=== PATIENT | female | born 1995 | race African-American/Black ===

== ENCOUNTER 2016-12-09 20:19 | Emergency (ER) | payer SELFPAY ==
[2016-12-09] MEDS ORDERED: Ketorolac Tromethamine 30 MG/ML VIAL ONE (20:55)
[2016-12-09] MEDS ORDERED: Dexamethasone 4 mg/ml Vial ONE (20:56)
[2016-12-09 20:57] LABS: #Basophils 0.1 thou/uL (0.0-0.2); #Eosinphils 0.1 thou/uL (0.0-0.7); #Lymphocytes 1.8 thou/uL (1.20-3.40); #Monocytes 1.3 thou/uL (0.11-0.59); %Basophils 0.8 % (0.0-1.0); %Eosinophils 0.3 % (0.0-10.0); %Lymphocytes 10.3 % (21.0-51.0); %Monocytes 7.5 % (0.0-10.0); Hemoglobin 12.7 g/dL (12.0-16.0); Mean Corpuscular HGB CONC 33.2 g/dL (32.0-36.0); Mean Corpuscular Hemoglobin 30.1 pg (27.0-31.0); Mean Corpuscular Volume 90.5 fl (81.0-99.0); Mean Platelet Volume 7.9 fL (7.4-10.4); Platelet Count 292 thou/uL (130-400); Red Blood Cell (RBC) Count 4.22 mill/uL (4.20-5.40); White Blood Cell (WBC) Count 17.3 thou/uL (4.8-10.8)
[2016-12-09] MEDS ORDERED: Bicillin CR 1.2 MILL UNITS/2 ML SYRINGE ONE (21:04)
[2016-12-09 21:06] LABS: ALT (SGPT) 22 U/L (8-55); AST (SGOT) 16 U/L (5-34); Albumin 4.3 g/dL (3.5-5.0); Alkaline Phosphatase 66 U/L (40-150); Anion Gap 14 mmol/L (10-20); BUN (Urea Nitrogen) 7 mg/dL (7.0-18.7); Bilirubin, Total 0.5 mg/dL (0.2-1.2); Calc. Creatinine Clearance 0 mL/min (70-130); Calcium 9.3 mg/dL (7.8-10.44); Carbon Dioxide 25 mmol/L (22-29); Chloride 103 mmol/L (98-107); Estimated GFR-MDRD Greater than 90; Globulin 3.5 g/dL (2.4-3.5); Glucose 84 mg/dL (70-105); Potassium 3.7 mmol/L (3.5-5.1); Protein, Total 7.8 g/dL (6.0-8.3); Sodium 138 mmol/L (136-145)
== END 2016-12-09 22:39 | disposition home or self-care (01) ==
LOC: BURERS 20:19
DX: J02.0 Streptococcal pharyngitis (principal)
CPT/HCPCS: 80053; 85025; 96361; 96372; 96374; J0558; J1100; J1885

== ENCOUNTER 2019-06-22 13:33 | Emergency (ER) | payer OTHER ==
[2019-06-22] MEDS ORDERED: hydrOXYzine 25 MG TAB ONE (14:04)
[2019-06-22] MEDS ORDERED: predniSONE 20 MG TAB ONE (14:04)
[2019-06-22] MEDS ORDERED: Famotidine 20 MG TAB ONE (14:05)
== END 2019-06-22 14:20 | disposition home or self-care (01) ==
LOC: BURERS 13:33
DX: R20.2 Paresthesia of skin (principal); T36.0X5A Adverse effect of penicillins, initial encounter; F41.9 Anxiety disorder, unspecified; F32.9 Major depressive disorder, single episode, unspecified; F17.210 Nicotine dependence, cigarettes, uncomplicated
CPT/HCPCS: 99283; J7512

== ENCOUNTER 2019-08-09 20:51 | Emergency (ER) | payer OTHER ==
[2019-08-09] MEDS ORDERED: Morphine 4 MG/ML VIAL ONE (21:16)
[2019-08-09 21:31] LABS: #Basophils 0.1 thou/uL (0.0-0.2); #Eosinphils 0.3 thou/uL (0.0-0.7); #Lymphocytes 2.8 thou/uL (1.20-3.40); #Monocytes 1.1 thou/uL (0.11-0.59); #Neutrophils 6.5 thou/uL (1.40-6.50); %Basophils 0.6 % (0.0-1.0); %Eosinophils 2.9 % (0.0-10.0); %Lymphocytes 25.8 % (21.0-51.0); %Monocytes 10.2 % (0.0-10.0); %Neutrophils 60.6 % (42.0-75.0); Mean Corpuscular HGB CONC 32.7 g/dL (32.0-36.0); Mean Corpuscular Volume 91.9 fL (78.0-98.0); Mean Platelet Volume 6.7 fL (7.4-10.4); Platelet Count 300 thou/uL (130-400); RBC Distribution Width 11.9 % (11.5-14.5); Red Blood Cell (RBC) Count 3.33 mill/uL (4.20-5.40); White Blood Cell (WBC) Count 10.7 thou/uL (4.8-10.8)
[2019-08-09 21:48] LABS: ALT (SGPT) 14 U/L (8-55); AST (SGOT) 11 U/L (5-34); Albumin 3.8 g/dL (3.5-5.0); Alkaline Phosphatase 41 U/L (40-110); Anion Gap 14 mmol/L (10-20); BUN (Urea Nitrogen) 7 mg/dL (7.0-18.7); Bilirubin, Total Less than 0.2 mg/dL (0.2-1.2); Calc. Creatinine Clearance 0 mL/min (70-130); Calcium 9.2 mg/dL (7.8-10.44); Carbon Dioxide 23 mmol/L (22-29); Chloride 103 mmol/L (98-107); Estimated GFR-MDRD Greater than 90; Globulin 3.1 g/dL (2.4-3.5); Glucose 99 mg/dL (70-105); Lipase 42 U/L (8-78); Potassium 3.5 mmol/L (3.5-5.1); Protein, Total 6.9 g/dL (6.0-8.3); Sodium 136 mmol/L (136-145)
== END 2019-08-09 22:20 | disposition short-term general hospital (02) ==
LOC: BURERS 20:51
DX: O26.891 Other specified pregnancy related conditions, first trimester (principal); R10.30 Lower abdominal pain, unspecified; R10.814 Left lower quadrant abdominal tenderness; R10.813 Right lower quadrant abdominal tenderness; O99.341 Other mental disorders complicating pregnancy, first trimester; F41.9 Anxiety disorder, unspecified; F32.9 Major depressive disorder, single episode, unspecified; O99.331 Smoking (tobacco) complicating pregnancy, first trimester; F17.210 Nicotine dependence, cigarettes, uncomplicated; Z3A.09 9 weeks gestation of pregnancy
CPT/HCPCS: 80053; 83690; 84702; 85025; 96374; J2270

== ENCOUNTER 2019-12-23 04:29 | Emergency (ER) | payer OTHER ==
[2019-12-23 04:58] LABS: Bilirubin Negative (Negative); Blood, Urine Trace (Negative); Clarity Turbid (Clear); Glucose, Urine (Dipstick) Negative (Negative); Leukocyte Small (Negative); Nitrite Negative (Negative); Protein, Urine (Dipstick) Negative (Neg-Trace); Urobilinogen 0.2 mg/dL (Less than 2)
[2019-12-23 04:59] LABS: Bacteria/HPF 1+ HPF (None Seen); RBC/HPF 0-3 HPF (0-3); Squamous Epithelial 0-3 HPF (0-3)
[2019-12-23] MEDS ORDERED: Cephalexin 250 MG CAP ONE (05:06)
== END 2019-12-23 05:15 | disposition home or self-care (01) ==
LOC: BURERS 04:29
DX: O23.43 Unspecified infection of urinary tract in pregnancy, third trimester (principal); O99.343 Other mental disorders complicating pregnancy, third trimester; F41.9 Anxiety disorder, unspecified; F32.9 Major depressive disorder, single episode, unspecified
CPT/HCPCS: 81003; 81015; 87086; 99283

== ENCOUNTER 2020-06-19 21:25 | Emergency (ER) | payer OTHER ==
[~2020-06-19 21:25] MED LIST: Iopamidol 370 76% 100 ML VIAL ONE
[2020-06-19] MEDS ORDERED: Ketorolac Tromethamine 30 MG/ML VIAL ONE (22:00)
[2020-06-19 22:28] LABS: BHCG - Serum Negative (NEGATIVE); Pregs Control Background? CLEAR/WHITE (CLR/WHITE); Pregs Control Bar Appear? YES (CONTROL BAR)
[2020-06-19 22:32] LABS: Hemoglobin 11.3 g/dL (12.0-16.0); Red Blood Cell (RBC) Count 3.96 mill/uL (4.20-5.40); White Blood Cell (WBC) Count 8.2 thou/uL (4.8-10.8)
[2020-06-19 22:33] LABS: #Eosinphils 0.3 thou/uL (0.0-0.7); #Lymphocytes 2.4 thou/uL (1.20-3.40); #Monocytes 0.7 thou/uL (0.11-0.59); #Neutrophils 4.7 thou/uL (1.40-6.50); %Basophils 0.5 % (0.0-1.0); %Eosinophils 3.4 % (0.0-10.0); %Lymphocytes 29.9 % (21.0-51.0); %Monocytes 8.3 % (0.0-10.0); %Neutrophils 57.9 % (42.0-75.0); Mean Corpuscular HGB CONC 31.6 g/dL (32.0-36.0); Mean Corpuscular Hemoglobin 28.5 pg (27.0-31.0); Mean Corpuscular Volume 90.1 fL (78.0-98.0); Mean Platelet Volume 8.3 fL (7.4-10.4); Platelet Count 290 thou/uL (130-400); RBC Distribution Width 14.5 % (11.5-14.5)
[2020-06-19 22:45] LABS: Anion Gap 13 mmol/L (10-20); BUN (Urea Nitrogen) 9 mg/dL (7.0-18.7); Calc. Creatinine Clearance 0 mL/min (70-130); Calcium 8.9 mg/dL (7.8-10.44); Carbon Dioxide 28 mmol/L (22-29); Chloride 104 mmol/L (98-107); Glucose 85 mg/dL (70-105); Potassium 3.7 mmol/L (3.5-5.1); Sodium 141 mmol/L (136-145)
[2020-06-19 22:46] LABS: ALT (SGPT) 16 U/L (8-55); AST (SGOT) 15 U/L (5-34); Albumin 4.2 g/dL (3.5-5.0); Alkaline Phosphatase 72 U/L (40-110); Globulin 3.7 g/dL (2.4-3.5); Protein, Total 7.9 g/dL (6.0-8.3)
[2020-06-19 22:52] LABS: Bilirubin, Total 0.2 mg/dL (0.2-1.2)
[2020-06-19] MEDS ORDERED: Aspirin Chewable 81 MG TAB ONE (22:55)
[2020-06-20] MEDS ORDERED: Enoxaparin Sodium 100 MG/ML SYRINGE ONE (00:20)
[2020-06-20] MEDS ORDERED: Morphine 4 MG/ML VIAL ONE (00:20)
--- NOTE | 2020-06-20 07:36 | RAD ---
PORTABLE CHEST: DATE: 06/19/2020. FINDINGS: An AP portable film at 2:01 shows a normal-sized heart and clear lungs. No infiltrate or effusion wa s seen. The mediastinum was unremarkable. IMPRESSION: No acute thoracic finding. POS: HOME
--- NOTE | 2020-06-20 07:50 | CT ---
PRELIMINARY REPORT/[facility]/EMERGENCY AFTER HOURS PROCEDURE: This report was discussed with Jen Pina MD by Leah Malone on Jun 19, 2020 23:45:00 BIOLOGICAL CHEMIST. Addendum electronically signed by Leah Malone on June 19, 2020 11:46:19 PM BIOLOGICAL CHEMIST EXAM: CTA Chest with Intravenous Contrast CLINICAL HISTORY: CP SINCE FRIDAY, COVID EXPOSURES, ELEV D DIMER, TECHNIQUE: Axial CTA images of the chest with intravenous contrast. Three-dimensional MIP/volume rend ered reformations were performed. CONTRAST: With; ISO 370, 96mL COMPARISON: None provided. FINDINGS: PULMONARY ARTERIES Positive pulmonary arterial thromboemboli identified in the segmental and subsegme ntal branches of the right and left lower lungs pulmonary arterial structures. No saddle embolus. T he main pulmonary arteries opacify without thromboemboli. AORTA No thoracic aortic aneurysm or dissection. LUNGS Minimal atelectasis both lower lungs.. No pulmonary mass. No focal airspace consolidation. PLEURAL SPACES No pleural effusion. No pneumothorax. HEART AND MEDIASTINUM No cardiomegaly. No significant pericardial effusion. LYMPH NODES No lymphadenopathy. BONES No focal osseous abnormality or acute fracture. CHEST WALL AND UPPER ABDOMEN Images through the upper abdomen are unremarkable. The chest wall is unr emarkable. IMPRESSION: This is a positive study for pulmonary arterial thromboemboli identified in the segmental and subsegmental branches of the right and left lower lungs. Minimal atelectasis both lower lungs. No effusion or pneumothorax. ELECTRONICALLY SIGNED BY: Katarzyna Talley DO Jun 19, 2020 11:40:01 PM BIOLOGICAL CHEMIST FINAL REPORT CT ANGIO OF THE CHEST: DATE: 06/19/2020. FINDINGS: After a bolus of IV contrast, axial slices were acquired followed by MIP reconstructions in various p lanes. There is moderate opacification of the pulmonary arteries. Defects are seen in several of th e arteries going to each lower lobe consistent with pulmonary emboli. No large emboli are seen in th e main pulmonary arteries. The lungs are clear, except for some dependent atelectasis. No effusions are seen. The heart was normal in appearance and there is no sign of pericardial effusion. There w as no mediastinal mass or adenopathy. The aorta showed no aneurysm or dissection. The visible porti ons of the upper abdomen showed no acute change. IMPRESSION: Multiple pulmonary emboli in the lower lobe pulmonary arteries bilaterally. Report in agreement with preliminary reading by [facility]. POS: HOME
== END 2020-06-20 01:33 | disposition short-term general hospital (02) ==
LOC: BURERS 21:25
DX: I26.99 Other pulmonary embolism without acute cor pulmonale (principal); Z20.828 Contact with and (suspected) exposure to other viral communicable diseases
CPT/HCPCS: 71045; 71275; 80053; 84484; 84703; 85025; 85379; 93005; 96372; 96374; 96375; J1650; J1885; J2270; Q9967

== ENCOUNTER 2022-02-19 21:44 | Emergency (ER) | payer OTHER ==
[2022-02-19] MEDS ORDERED: Clindamycin 150 MG CAP ONE (22:08)
[2022-02-19] MEDS ORDERED: Ciprofloxacin 500 MG TAB ONE (22:08)
[2022-02-19] MEDS ORDERED: Ibuprofen 800 MG TAB ONE (22:08)
[2022-02-19] MEDS ORDERED: Acetaminophen 500 MG TAB ONE (22:08)
== END 2022-02-19 22:15 | disposition home or self-care (01) ==
LOC: BURERS 21:44
DX: K08.89 Other specified disorders of teeth and supporting structures (principal); F17.210 Nicotine dependence, cigarettes, uncomplicated
CPT/HCPCS: 99282

== ENCOUNTER 2022-07-13 00:14 | Emergency (ER) | payer OTHER | END 2022-07-13 01:00 | disposition home or self-care (01) | LOC: BURERS 00:14 | DX: S90.122A Contusion of left lesser toe(s) without damage to nail, initial encounter (principal); F17.210 Nicotine dependence, cigarettes, uncomplicated; W22.03XA Walked into furniture, initial encounter ==